=== PATIENT | male | born 1965 | race Caucasian/White ===

== ENCOUNTER 2017-12-08 13:41 | Outpatient (CLI) | payer BC ==
[~2017-12-08] VITALS: Ht 188 cm; Wt 108.9 kg
[2017-12-08] MEDS ORDERED: AMLO10TA6 PO (13:43)
== END 2017-12-08 13:44 | disposition home or self-care (01) ==
LOC: PREOP 13:41
PROVIDERS: ATTEND Internal Medicine
DX: Z01.818 Encounter for other preprocedural examination (principal)

== ENCOUNTER 2017-12-11 08:03 | Day surgery (SDC) | payer BC ==
--- NOTE | 2017-12-05 15:29 | HISTORY AND PHYSICAL ---
DATE OF SERVICE: HISTORY OF PRESENT ILLNESS: The patient is a 52-year-old white male referred by Dr. Restrepo for his first screening colonoscopy. He seemed to be of average risk as he is not aware of any family history for colon cancer. He denies any history of bright red blood per rectum, melena, bowel habit change, any significant problems with indigestion, dysphagia or odynophagia. His weight that he denies any issues with weight loss. PAST MEDICAL HISTORY: Significant for hypertension. PAST SURGICAL HISTORY: Noncontributory. Reporting no past surgeries. FAMILY HISTORY: Father at age of 66 secondary to pancreatitis, gallstone related. Mother at the age of 73 secondary to COPD result of longstanding tobaccoism. He is not aware of any family history for malignancy. SOCIAL HISTORY: He works at [employer]. Reporting no past smoking history with occasional social alcohol intake reported as a few beers on the weekends only. PHYSICAL EXAMINATION: GENERAL: Reveals a pleasant white male, appears to be in no acute distress. VITAL SIGNS: Weight is 242 pounds, blood pressure 124/96, heart rate 70 and regular. HEENT: Unremarkable. Sclerae nonicteric. NECK: Revealed no JVD, adenopathy or bruits. CHEST: Clear to auscultation. CARDIOVASCULAR: Reveals a regular rate and rhythm without murmur, S3 or S4. ABDOMEN: Soft, supple without mass, organomegaly or tenderness. No bruits are appreciated. Bowel sounds are positive. EXTREMITIES: Reveal no cyanosis, clubbing or edema. The patient is set up for screening colonoscopy on 12/11/2017. Prep instructions with Suprep kits were given and questions were answered. Rationale for screening colonoscopy was discussed with the patient as well. In evaluation answering his questions and evaluating his electronic medical record 45 minutes care time spent today. I thank you for the referral of this pleasant gentleman. Job ID: [id number] DocumentID: [id number] Dictated Date: 12/05/2017 15:12:02 [facility] Date: 12/05/2017 15:29:23 Dictated By: NORMA BLANK MD [facility]
[~2017-12-11] VITALS: Ht 188 cm; Wt 108.9 kg
[~2017-12-11 08:03] MED LIST: AMLO10TA6 PO
[2017-12-11] MEDS ORDERED: D5 LR IV SOLUTION 1,000 ML IV ONE (08:05)
--- OUTSIDE RECORDS SUMMARY | 2017-12-11 08:09 | XMS REPORT ---
Author Author CANTRELLERNESTO Olmedo Organization [facility] Address [address] [place] [address] Care Team Providers Care Treating Engineer Helper Name Role Phone ERNESTO CANTRELL Unavailable PROBLEMS Type Condition ICD9-CM Code ZIS80-QS Code Onset Dates Condition Status SNOMED Code Problem Obesity (BMI 30.0-34.9) E66.9 Active 662166176292547 Problem ETOH abuse F10.10 Active 06648868 Problem Non compliance with medical treatment Z91.19 Active 9328864 Problem Essential hypertension I10 Active 30289643 ALLERGIES No Known Allergies ENCOUNTERS Encounter Location Date Diagnosis [place] [address] [address] Mar, [place] [address] [address] Mar, Essential hypertension I10 [place] [address] [address] Feb, Essential hypertension I10 and Obesity (BMI 30.0-34.9) E66.9 [place] [address] [place] [id number] [place] [address] 2667 Jan, Essential hypertension I10 [place] [address] [address] Nov, Essential hypertension I10 ; ETOH abuse F10.10 and Non compliance with medical treatment Z91.19 [place] [address] [address] Sep, [place] [address] [address] Jul, Essential hypertension I10 [place] [address] [place] [address] Jun, Essential hypertension I10 [facility] [address] [id number] [id number] Apr, Encounter for dental examination Z01.20 [facility] [address] Mar, Encounter for health maintenance examination in adult Z00.00 and Essential hypertension I10 [facility] [address] [address] 8[address] Nov, [facility] [address] [place] [id number] [place] [address]- 68[address] Jul, [facility] [address] [place] [id number] [place] [address] 6[address]- 8768 Jul, [facility] [address] [place] [id number] [place] [address]- 2640 Jan, [facility] [address] [address] Jan, [facility] [address] [place] [address] 57[address]- 3[address] August, [facility] [address] [address] 7[address] Jul, [facility] [address] [address] 8[address] May, [facility] [address] [address] 117[address] Jan, [facility] [address] [address] 4[address] Dec, [facility] [address] [address] 267[address] Jul, [facility] [address] [address] 5[address] Jun, [facility] [address] [id number] [place] [address] 8[address] 14 May, 2011 [facility] [place] [facility] [address] [id number] [place] [address]- 3988 13 May, 2011 [facility] [place] [facility] [address] [id number] [place] [address]- 99[address] 10 May, 2011 [facility] [place] [facility] [address] [id number] [place] [address]- 2130 03 May, 2011 [facility] [place] [facility] [address] [id number] [place] [address] 28 Mar, 2011 [facility] [place] [facility] [address] [id number] [place] [address]- 2006 Feb, [facility] [place] [facility] [address] [facility] [id number] [place] [address] 50[address] Jan, [facility] [place] [facility] [address] [facility] [id number] [place] [address]- 7[address] August, [facility] [place] [facility] [address] [facility] [id number] [place] [address]- 2408 Jan, [facility] [place] [facility] [address] [facility] [id number] [place] [address]- 2579 Jan, [facility] [place] [facility] [address] [facility] [id number] [place] [address]- 6978 23 Mar, 2009 [facility] [place] [facility] [address] [id number] [place] [address] 76[address] Jan, [facility] [place] [facility] [address] [facility] [id number] [place] [address]- 1782 Oct, [facility] [place] [facility] [address] [facility] [id number] [place] [address]- 9444 Jul, [facility] [place] [facility] [address] [id number] [place] [address] 18 May, 2007 [facility] [place] [facility] [address] [facility] [id number] [place] [address] 2546 Feb, [facility] [address] [facility] [id number] [place] [address] 2546 Jan, [facility] [address] [facility] [id number] [place] [address]- 2546 Dec, [facility] [address] [facility] [id number] [place] [address]- 25[address] Nov, IMMUNIZATIONS No Known Immunizations SOCIAL HISTORY Never Assessed [facility]AS[facility] FOR VISIT [facility] Activity Details Follow Up 3 Months Reason:CHM/HTN VITAL SIGNS Height 74 in 2017-02-27 Weight 237 lbs 2017-02-27 Temperature 98.2 degrees Fahrenheit 2017-02-27 Heart Rate 90 bpm 2017-02-27 Respiratory Rate 18 2017-02-27 BMI 30.43 kg/m2 2017-02-27 Blood pressure systolic 122 mmHg 2017-02-27 Blood pressure diastolic 84 mmHg 2017-02-27 MEDICATIONS Medication Instructions Dosage Frequency Start Date End Date Duration Status Norvasc 10 mg Orally Once a day 1 tablet 24h 90 days Active RESULTS No Results PROCEDURES No Known procedures INSTRUCTIONS MEDICATIONS ADMINISTERED No Known Medications MEDICAL (GENERAL) HISTORY Type Description Date Medical History HTN
--- OUTSIDE RECORDS SUMMARY | 2017-12-11 08:09 | XMS REPORT ---
Author Author CANTRELLERNESTO Olmedo Organization [facility] Address [address] [place] [address] Care Team Providers Care Pedorthist Name Role Phone ERNESTO CANTRELL Unavailable PROBLEMS Type Condition ICD9-CM Code EFJ80-YR Code Onset Dates Condition Status SNOMED Code Problem Obesity (BMI 30.0-34.9) E66.9 Active 220474158993081 Problem ETOH abuse F10.10 Active 85462592 Problem Non compliance with medical treatment Z91.19 Active 8948018 Problem Essential hypertension I10 Active 93699637 ALLERGIES No Known Allergies ENCOUNTERS Encounter Location Date Diagnosis [place] [address] [address] Mar, [place] [address] [address] Mar, Essential hypertension I10 [place] [address] [address]- [address] Feb, Essential hypertension I10 and Obesity (BMI 30.0-34.9) E66.9 [place] [address] [place] [id number] [place] [address]- 67[address] Jan, Essential hypertension I10 [place] [address] [address]- [address] Nov, Essential hypertension I10 ; ETOH abuse F10.10 and Non compliance with medical treatment Z91.19 [place] [address] [address]- [address] Sep, [place] [address] [address]- [address] Jul, Essential hypertension I10 [place] [address] [place] [address]- 7321 Jun, Essential hypertension I10 [facility] [address] [id number] [id number] Apr, Encounter for dental examination Z01.20 [facility] [address] Mar, Encounter for health maintenance examination in adult Z00.00 and Essential hypertension I10 [facility] [address], [place] [address]- 114[address] Nov, [facility] [address] [place] [id number] [place] [address]- 1852 Jul, [facility] [address] [place] [id number] [place] [address] 82661- 8949 Jul, [facility] [address] [place] [id number] [place] [address] 12672- 4164 Jan, [facility] [address], [place] [address]- 1605 Jan, [facility] [address] [place] [address] 803627- 2210 August, [facility] [address], [place] [address]- 38[address] Jul, [facility] [address], [place] [address]- 0055 May, [facility] [address], [place] [address]- 7161 Jan, [facility] [address], [place] [address]- 2710 Dec, [facility] [address], [place] [address]- 6542 Jul, [facility] [address], [place] [address]- 9256 Jun, [facility] [address] [id number] [place] [address]- 6202 14 May, 2011 [facility] [place] [facility] [address] [id number] [place] [address]- 6844 13 May, 2011 [facility] [place] [facility] [address] [id number] [place] [address]- 0949 10 May, 2011 [facility] [place] [facility] [address] [id number] [place] [address]- 2972 03 May, 2011 [facility] [place] [facility] [address] [id number] [place] [address]- 8266 28 Mar, 2011 [facility] [place] [facility] [address] [id number] [place] [address]- 2580 Feb, [facility] [place] [facility] [address] [facility] [id number] [place] [address]- 8209 Jan, [facility] [place] [facility] [address] [facility] [id number] [place] [address]- 5032 August, [facility] [place] [facility] [address] [facility] [id number] [place] [address]- 8378 Jan, [facility] [place] [facility] [address] [facility] [id number] [place] [address]- 1871 Jan, [facility] [place] [facility] [address] [facility] [id number] [place] [address]- 2660 23 Mar, 2009 [facility] [place] [facility] [address] [id number], [place] [address]- 9825 Jan, [facility] [place] [facility] [address] [facility] [id number] [place] [address]- 3380 Oct, [facility] [place] [facility] [address] [facility] [id number] [place] [address]- 2261 Jul, [facility] [place] [facility] [address] [id number], [place] [address]- 6075 18 May, 2007 [facility] [place] [facility] [address] [facility] [id number], [place] [address]- 2546 Feb, [facility] [address] [facility] [id number] [place] [address]- 2546 Jan, [facility] [address] [facility] [id number][place] [address]- 2546 Dec, [facility] [address] [facility] [id number], [place] [address]- 2546 Nov, IMMUNIZATIONS No Known Immunizations SOCIAL HISTORY Never Assessed REASON FOR VISIT Blood Pressure-ELROY Badillo, C/o of DUGAN's. Been out of norvasc for over a month. PLAN OF CARE Activity Details Follow Up 3 Months Reason:CHM VITAL SIGNS Height 74 in 2016-11-04 Weight 252 lbs 2016-11-04 Temperature 99.3 degrees Fahrenheit 2016-11-04 Heart Rate 90 bpm 2016-11-04 Respiratory Rate 20 2016-11-04 BMI 32.35 kg/m2 2016-11-04 Blood pressure systolic 122 mmHg 2016-11-04 Blood pressure diastolic 94 mmHg 2016-11-04 MEDICATIONS Medication Instructions Dosage Frequency Start Date End Date Duration Status Norvasc 10 mg Orally Once a day 1 tablet 24h 90 days Active RESULTS No Results PROCEDURES No Known procedures INSTRUCTIONS MEDICATIONS ADMINISTERED No Known Medications MEDICAL (GENERAL) HISTORY Type Description Date Medical History HTN
--- OUTSIDE RECORDS SUMMARY | 2017-12-11 08:09 | XMS REPORT ---
Author Author ERNESTO CANTRELL Organization [facility] Address [address] [place] [address] Care Team Providers Care Photogrammetric Engineer Name Role Phone ERNESTO CANTRELL Unavailable PROBLEMS Type Condition ICD9-CM Code URM90-QL Code Onset Dates Condition Status SNOMED Code Problem ETOH abuse F10.10 Active 73960025 Problem Non compliance with medical treatment Z91.19 Active 8398137 Problem Essential hypertension I10 Active 82014835 ALLERGIES Substance Reaction Event Type Date Status N.K.D.A. Unknown Non Drug Allergy Mar, Unknown SOCIAL HISTORY No smoking Hx information available PLAN OF CARE Activity Details Follow Up 3 Months Reason:HTN VITAL SIGNS Height 74 in 2016-04-03 Weight 262 lbs 2016-04-03 Temperature 98.5 degrees Fahrenheit 2016-04-03 Heart Rate 90 bpm 2016-04-03 Respiratory Rate 60 2016-04-03 BMI 33.64 kg/m2 2016-04-03 Blood pressure systolic 152 mmHg 2016-04-03 Blood pressure diastolic 90 mmHg 2016-04-03 MEDICATIONS Medication Instructions Dosage Frequency Start Date End Date Duration Status Norvasc 10 mg Orally Once a day 1 tablet 24h 90 days Active RESULTS No Results PROCEDURES Procedure Date Ordered Related Diagnosis Body Site Office Visit, Est Pt., Level 3 Apr 03, 2016 IMMUNIZATIONS No Known Immunizations
--- OUTSIDE RECORDS SUMMARY | 2017-12-11 08:09 | XMS REPORT ---
Author Author CANTRELLERNESTO Olmedo Organization [facility] Address [address] [place] [address] Care Team Providers Care Student Union Consultant Name Role Phone ERNESTO CANTRELL Unavailable PROBLEMS Type Condition ICD9-CM Code DQI85-TZ Code Onset Dates Condition Status SNOMED Code Problem Obesity (BMI 30.0-34.9) E66.9 Active 828785028645681 Problem ETOH abuse F10.10 Active 24604431 Problem Non compliance with medical treatment Z91.19 Active 7857902 Problem Essential hypertension I10 Active 67726760 ALLERGIES No Information ENCOUNTERS Encounter Location Date Diagnosis [place] [address] [address]- [address] Mar, [place] [address] [address]- [address] Mar, Essential hypertension I10 [place] [address] [address]- 98[address] Feb, Essential hypertension I10 and Obesity (BMI 30.0-34.9) E66.9 [place] [address] [address]- 6179 Jan, Essential hypertension I10 [place] [address] [address]- [address] Nov, Essential hypertension I10 ; ETOH abuse F10.10 and Non compliance with medical treatment Z91.19 [place] [address] [address]- 270[address] Sep, [place] [address] [address]- [address]30 Jul, Essential hypertension I10 [place] [address] [place] [address]- 0043 Jun, Essential hypertension I10 [facility] [address] [id number] [id number] Apr, [facility]01.20 [facility] [address] Mar, Encounter for health maintenance examination in adult Z00.00 and Essential hypertension I10 [facility] [address] [facility] [id number], [place] [address]- 4[address] Nov, [facility] [address] [address] Jul, [facility] [address] [address] Jul, [facility] [address], [place] [address]- 0196 Jan, [facility] [address], [place] [address]- 3660 Jan, [facility] [address] [address] August, [facility] [address]- [address]87 Jul, [facility] [address], [place] [address]- 7368 May, [facility] [address], [place] [address]- 9120 Jan, [facility] [address], [place] [address]- 8790 Dec, [facility] [address], [place] [address]- 9765 Jul, [facility] [address], [place] [address]- 9766 Jun, [facility] [place] [facility] [address] [id number] [place] [address]- 8950 14 May, 2011 [facility] [place] [facility] [address] [id number] [place] [address]- 3777 13 May, 2011 [facility] [place] [facility] [address] [id number] [place] [address]- 1316 10 May, 2011 [facility] [place] [facility] [address] [id number] [place] [address]- 0270 03 May, 2011 [facility] [place] [facility] [address] [id number] [place] [address]- 2439 28 Mar, 2011 [facility] [place] [facility] [address] [id number] [place] [address]- 9675 Feb, [facility] [place] [facility] [address] [id number] [place] [address]- 7652 25 Jan, 2011 [facility] [place] [facility] [address] [id number] [place] [address]- 0058 August, [facility] [place] [facility] [address] [id number] [place] [address]- 0561 13 Jan, 2010 [facility] [place] [facility] [address] [facility] [id number] [place] [address]- 9585 13 Jan, 2010 [facility] [place] [facility] [address] [facility] [id number] [place] [address]- 7961 23 Mar, 2009 [facility] [place] [facility] [address] [id number] [place] [address]- 2643 Jan, [facility] [place] [facility] [address] [id number] [place] [address]- 5039 Oct, [facility] [place] [facility] [address] [id number] [place] [address]- 8067 Jul, [facility] [place] [facility] [address] [id number] [place] [address]- 8618 18 May, 2007 [facility] [place] [facility] [address] [id number], [place] [address]- 0[address] Feb, [facility] [address] [facility] [id number] [place] [address]- 2546 Jan, [facility] [address] [facility] [id number], [place] [address]- 2546 Dec, [facility] [address] [facility] [id number] [place] [address]- 2546 Nov, IMMUNIZATIONS No Known Immunizations SOCIAL HISTORY Never Assessed REASON FOR VISIT Lab (walk-in)--[facility] PLAN OF CARE VITAL SIGNS MEDICATIONS Unknown Medications RESULTS No Results PROCEDURES Procedure Date Ordered Result Body Site LIPID PANEL Mar 06, 2017 COMPREHEN METABOLIC PANEL Mar 06, 2017 ASSAY THYROID STIM HORMONE Mar 06, 2017 COMPLETE CBC W/AUTO DIFF WBC Mar 06, 2017 VENIPUNCT, ROUTINE* Mar 06, 2017 INSTRUCTIONS MEDICATIONS ADMINISTERED No Known Medications MEDICAL (GENERAL) HISTORY Type Description Date Medical History HTN
--- OUTSIDE RECORDS SUMMARY | 2017-12-11 08:09 | XMS REPORT ---
Author Author CANTRELLERNESTO Olmedo Organization [facility] Address [address] [place] [address] Care Team Providers Care Egg Grader Name Role Phone ERNESTO CANTRELL Unavailable PROBLEMS Type Condition ICD9-CM Code SGO56-RE Code Onset Dates Condition Status SNOMED Code Problem Obesity (BMI 30.0-34.9) E66.9 Active 708725717065377 Problem ETOH abuse F10.10 Active 71152950 Problem Non compliance with medical treatment Z91.19 Active 9049552 Problem Essential hypertension I10 Active 75721958 ALLERGIES No Information ENCOUNTERS Encounter Location Date Diagnosis [place] [address] [address] Mar, [place] [address] [address] Mar, Essential hypertension I10 [place] [address] [address] Feb, Essential hypertension I10 and Obesity (BMI 30.0-34.9) E66.9 [place] [address] [address] Jan, Essential hypertension I10 [place] [address] [address] Nov, Essential hypertension I10 ; ETOH abuse F10.10 and Non compliance with medical treatment Z91.19 [place] [address] [address] Sep, [place] [address] [address] Jul, Essential hypertension I10 [place] [address] [place] [address] Jun, Essential hypertension I10 [facility] [place] [facility] [address] [id number] [id number] Apr, [facility] for [facility] examination Z01.20 [facility] [address] [address] Mar, Encounter for health maintenance examination in adult Z00.00 and Essential hypertension I10 [facility] [address] [facility] [id number] [address] Nov, [facility] [address] [place] [address] Jul, [facility] [address] [address] Jul, [facility] [address] [address] Jan, [facility] [address] [address] Jan, [facility] [address] [address] August, [facility] [address] [address] Jul, [facility] [address] [address] May, [facility] [address] [address] Jan, [facility] [address] [address] Dec, [facility] [address] [address] Jul, [facility] [address] [address] Jun, [facility] [place] [facility] [address] [id number] [place] [address] 14 May, 2011 [facility] [place] [facility] [address] [id number] [place] [address] 13 May, 2011 [facility] [place] [facility] [address] [id number] [place] [address] 10 May, 2011 [facility] [place] [facility] [address] [id number] [place] [address] 03 May, 2011 [facility] [place] [facility] [address] [id number] [place] [address] 28 Mar, 2011 [facility] [place] [facility] [address] [id number] [place] [address] Feb, [facility] [place] [facility] [address] [id number] [place] [address] 25 Jan, 2011 [facility] [place] [facility] [address] [id number] [place] [address] August, [facility] [place] [facility] [address] [id number] [place] [address] 13 Jan, 2010 [facility] [place] [facility] [address] [facility] [id number] [place] [address] 13 Jan, 2010 [facility] [place] [facility] [address] [facility] [id number] [place] [address] 23 Mar, 2009 [facility] [place] [facility] [address] [id number] [place] [address] Jan, [facility] [place] [facility] [address] [id number] [place] [address] Oct, [facility] [place] [facility] [address] [id number] [place] [address] Jul, [facility] [place] [facility] [address] [id number] [place] [address] 18 May, 2007 [facility] [place] [facility] [address] [id number] [place] [address] Feb, [facility] [address] [facility] [id number] [place] [address] Jan, [facility] [address] [facility] [id number] [place] [address] Dec, [facility] [address] [facility] [id number] [place] [address] Nov, IMMUNIZATIONS No Known Immunizations SOCIAL HISTORY Never Assessed REASON FOR VISIT Requests return call PLAN OF CARE VITAL SIGNS MEDICATIONS Unknown Medications RESULTS No Results PROCEDURES No Known procedures INSTRUCTIONS MEDICATIONS ADMINISTERED No Known Medications MEDICAL (GENERAL) HISTORY Type Description Date Medical History HTN
--- OUTSIDE RECORDS SUMMARY | 2017-12-11 08:09 | XMS REPORT ---
Author MAYELA Vázquez Organization [employer] Address Unknown Phone Unavailable Care Team Providers Care Yard Spotter Name Role Phone MAYELA SWIFT CP Unavailable Allergies No Known Allergies Problems Problem Type Condition Code Onset Dates Condition Status Problem Acute upper respiratory infections of unspecified site 465.9 Active Medications No Known Medications Results No Known Results Summary Purpose [employer] Submission
--- OUTSIDE RECORDS SUMMARY | 2017-12-11 08:09 | XMS REPORT ---
Author Author SUPRIYA BERRIOS Organization [facility] Address [address] [place] [address] Care Team Providers Care Aco Coordinator Name Role Phone AGUSTINAZAKIYAA Unavailable PROBLEMS Type Condition ICD9-CM Code PZY90-WL Code Onset Dates Condition Status SNOMED Code Problem ETOH abuse F10.10 Active 31689386 Problem Non compliance with medical treatment Z91.19 Active 1633428 Problem Essential hypertension I10 Active 27901193 ALLERGIES Substance Reaction Event Type Date Status N.K.D.A. Unknown Non Drug Allergy Apr, Unknown SOCIAL HISTORY No smoking Hx information available PLAN OF CARE Activity Details Follow Up 6 Months Reason:Recall VITAL SIGNS Heart Rate 99 bpm 2016-04-29 Blood pressure systolic 133 mmHg 2016-04-29 Blood pressure diastolic 91 mmHg 2016-04-29 MEDICATIONS Medication Instructions Dosage Frequency Start Date End Date Duration Status Norvasc 10 mg Orally Once a day 1 tablet 24h 90 days Active RESULTS No Results PROCEDURES Procedure Date Ordered Related Diagnosis Body Site PERIODIC ORAL EXAMINATION Apr 29, 2016 INTRAORL-PERIAPICAL 1 FILM 48467 Apr 29, 2016 INTRAORL-PERIAPICAL EA ADD FILM Apr 29, 2016 INTRAORL-PERIAPICAL EA ADD FILM Apr 29, 2016 Periodontal maint procedures Apr 29, 2016 BITEWINGS - FOUR FILMS Apr 29, 2016 IMMUNIZATIONS No Known Immunizations
--- OUTSIDE RECORDS SUMMARY | 2017-12-11 08:09 | XMS REPORT ---
Author Author ERNESTO CANTRELL Organization [facility] Address [address] [place] [address] Care Team Providers Care Lock Fitter Name Role Phone ERNESTO CANTRELL Unavailable PROBLEMS Type Condition ICD9-CM Code PQL04-YJ Code Onset Dates Condition Status SNOMED Code Problem ETOH abuse F10.10 Active 49512184 Problem Non compliance with medical treatment Z91.19 Active 6652511 Problem Essential hypertension I10 Active 00745411 ALLERGIES No Information SOCIAL HISTORY Never Assessed PLAN OF CARE VITAL SIGNS MEDICATIONS Medication Instructions Dosage Frequency Start Date End Date Duration Status Norvasc 10 mg Orally Once a day 1 tablet 24h Active RESULTS No Results PROCEDURES No Known procedures IMMUNIZATIONS No Known Immunizations MEDICAL (GENERAL) HISTORY Type Description Date Medical History HTN
[2017-12-11 08:10] VITALS: BP 124/94
--- OUTSIDE RECORDS SUMMARY | 2017-12-11 08:10 | XMS REPORT | Continuity of Care Document ---
Author Author [facility] Address Unknown Phone Unavailable Allergies There is no data. Medications There is no data. Problems Date Dx Coded Attending Type Code Diagnosis Diagnosed By 10/22/2007 MAYELA SWIFT DO 401.1 HYPERTENSION, BENIGN ESSENTIAL 10/22/2007 MAYELA SWIFT DO 530.81 Gerd 12/02/2007 MAYELA SWIFT DO 462 Pharyngitis Acute 01/06/2008 MAYELA SWIFT DO 461.9 SINUSITIS ACUTE 06/26/2008 MAYELA SWIFT DO 465.9 Upper Respiratory Infection 07/07/2008 MAYELA SWIFT DO 381.81 Dysfunction Of Eustachian Tube 04/26/2009 MAYELA SWIFT DO 724.3 Sciatica 07/01/2010 MAYELA SWIFT DO 706.2 Sebaceous Cyst 07/01/2010 GINA SWIFT DOA K 788.62 Slowing Of Urinary Stream 07/04/2010 GINA SWIFT DOA K 600.00 HYPERTROPHY (BENIGN) OF PROSTATE WITHOUT URINARY OBSTRUCTION AND OTHER LOWER URINARY TRACT SYMPTOMS (LUTS) 08/14/2010 MAYELA SWIFT DO 355.0 Lesion Of Sciatic Nerve 05/14/2012 MAYELA SWIFT DO 465.9 UPPER RESPIRATORY INFECTION Procedures There is no data. Results Test Result Range THYROID ANALYZER - 03/06/17 08:20 TSH 1.67 mIU/L 0.40-4.50 Encounters ACCT No. Visit Date/Time Discharge Status Pt. Type Provider Facility Loc./Unit Complaint [id number] 05/14/2012 10:22:00 05/14/2012 23:59:59 [place] [id number] 03/06/2017 08:00:00 03/06/2017 23:59:59 [facility] [id number] 03/06/2017 08:00:00 Document Registration
--- OUTSIDE RECORDS SUMMARY | 2017-12-11 08:10 | XMS REPORT ---
Author Author CANTRELLERNESTO Olmedo Organization [facility] Address [address] [place] [address] Care Team Providers Care Ict Programmer Name Role Phone ERNESTO CANTRELL Unavailable PROBLEMS Type Condition ICD9-CM Code VBI99-VU Code Onset Dates Condition Status SNOMED Code Problem Obesity (BMI 30.0-34.9) E66.9 Active 361761917183647 Problem ETOH abuse F10.10 Active 22097728 Problem Non compliance with medical treatment Z91.19 Active 0495305 Problem Essential hypertension I10 Active 55800169 ALLERGIES No Information ENCOUNTERS Encounter Location Date Diagnosis [place] [address] [address] Mar, [place] [address] [address] Mar, Essential hypertension I10 [place] [address] [address] Feb, Essential hypertension I10 and Obesity (BMI 30.0-34.9) E66.9 [place] [address] [address] Jan, Essential hypertension I10 [place] [address] [address] Nov, Essential hypertension I10 ; ETOH abuse F10.10 and Non compliance with medical treatment Z91.19 [place] [address] [address] Sep, [place] [address] [address] Jul, Essential hypertension I10 [place] [address] [place] [address] Jun, Essential hypertension I10 [facility] [place] [facility] [address] [id number] [place] [address] Apr, [facility]counter for [facility] examination Z01.20 [facility] [address] [address] Mar, Encounter for health maintenance examination in adult Z00.00 and Essential hypertension I10 [facility] [address] [facility] [id number] [address] Nov, [facility] [address] Jul, [facility] [address] [address] Jul, [facility] [address] [address] Jan, [facility] [address] [address] Jan, [facility] [address] August, [facility] [address] [address] Jul, [facility] [address] [address] May, [facility] [address] [address] Jan, [facility] [address] [address] Dec, [facility] [address] [address] Jul, [facility] [address] [address] Jun, [facility] [place] [facility] [address] [id number] [place] [address]- [address] 14 May, 2011 [facility] [place] [facility] [address] [id number] [place] [address]- [address] 13 May, 2011 [facility] [place] [facility] [address] [id number] [place] [address]- [address] 10 May, 2011 [facility] [place] [facility] [address] [id number] [place] [address]- [address] 03 May, 2011 [facility] [place] [facility] [address] [id number] [place] [address]- 65[address] 28 Mar, 2011 [facility] [place] [facility] [address] [id number] [place] [address]- [address] Feb, [facility] [place] [facility] [address] [id number] [place] [address]- [address] 25 Jan, 2011 [facility] [place] [facility] [address] [id number] [place] [address]- [address] August, [facility] [place] [facility] [address] [id number] [place] [address] 13 Jan, 2010 [facility] [place] [facility] [address] [facility] [id number] [place] [address]- [address] 13 Jan, 2010 [facility] [place] [facility] [address] [facility] [id number] [place] [address]- [address] 23 Mar, 2009 [facility] [place] [facility] [address] [id number] [place] [address]- 2018 Jan, [facility] [place] [facility] [address] [id number] [place] [address]- [address] Oct, [facility] [place] [facility] [address] [id number] [place] [address] Jul, [facility] [place] [facility] [address] [id number] [place] [address]- [address] 18 May, 2007 [facility] [place] [facility] [address] [id number] [place] [address] Feb, [facility] [address] [facility] [id number] [place] [address] Jan, [facility] [address] [facility] [id number] [address] Dec, [facility] [address] [facility] [id number] [place] [address] Nov, IMMUNIZATIONS No Known Immunizations SOCIAL HISTORY Never Assessed REASON FOR VISIT Refill request PLAN OF CARE VITAL SIGNS MEDICATIONS Unknown Medications RESULTS No Results PROCEDURES No Known procedures INSTRUCTIONS MEDICATIONS ADMINISTERED No Known Medications MEDICAL (GENERAL) HISTORY Type Description Date Medical History HTN
[2017-12-11] MEDS ORDERED: LIDOCAINE JELLY 2% (XYLOCAINE) 5 ML TUBE MM PRN (08:30)
[2017-12-11] MEDS ORDERED: MIDAZOLAM 2 MG/2 ML (VERSED) VIAL IVP ONE (08:30)
[2017-12-11] MEDS ORDERED: fentaNYL INJECTION 100 MCG/2 ML AMP IVP ONE (08:30)
[2017-12-11] MEDS ORDERED: D5 LR IV SOLUTION 1,000 ML IV PRN (08:30)
--- NOTE | 2017-12-11 08:45 | Pre-Op Note & Conscious Sedat ---
Pre-Operative Progress Note H&P Reviewed The H&P was reviewed, patient examined and no changes noted. Date H&P Reviewed: Dec 11, 2017 Time H&P Reviewed: 08:45 Conscious Sedation Pre-Proced ASA Class: 2 Airway Mallampati Classification: (bois forte appropriate class) I. II. III, IV Lungs Heart ASA score ASA 1: a normal healthy patient ASA 2: a patient with a mild systemic disease (mid diabetes, controlled hypertension, obesity ASA 3: a patient with a severe systemic disease that limits activity (angina , COPD, prior Myocardial infarction) ASA 4: a patient with an incapacitating disease that is a constant threat to life (CHF, renal failure) ASA 5: a moribund patient not expected to survive 24 hrs. (ruptured aneurysm) ASA 6: a declared brain patient whose organs are being harvested. For emergent operations, add the letter E after the classification Grade 3 Sedation Plan: Analgesia, Amnesia, Plan communicated to team members, Discussed options with patient/fam, Discussed risks with patient/fam Note The patient is an appropriate candidate to undergo the planned procedure, sedation, and anesthesia. The patient immediately re-assessed prior to indication. NORMA BLANK MD Dec 11, 2017 08:45
[2017-12-11] MEDS ORDERED: MIDAZOLAM 2 MG/2 ML (VERSED) VIAL ONE ×2 (09:08)
[2017-12-11] MEDS ORDERED: fentaNYL INJECTION 100 MCG/2 ML AMP ONE (09:08)
[2017-12-11] MEDS ORDERED: LIDOCAINE JELLY 2% (XYLOCAINE) 5 ML TUBE ONE (09:09)
[2017-12-11 10:05] VITALS: BP 123/88
[2017-12-11 10:35] VITALS: BP 118/78
[2017-12-11 11:10] VITALS: BP 118/78
--- NOTE | 2017-12-11 15:35 | OPERATIVE REPORT ---
DATE OF SERVICE: 12/11/2017 COLONOSCOPY SUMMARY INDICATION FOR THE PROCEDURE: Screening colonoscopy. The patient was placed in the left lateral decubitus position. Prior to undergoing colonoscopy, digital rectal evaluation was performed. Anal sphincter tone was normal. The perianal reflexes were intact. Prostate is normal in size, anodular, nontender to digital inspection. No abnormalities, no additional inspection of the anal canal or distal rectal vault. Colonoscope was then inserted into the rectum under direct visualization and advanced to the cecum. The cecum was identified by identification of the ileocecal valve and cecal strap. Photographic documentation was obtained. Careful inspection was made as colonoscope was withdrawn. The colonic prep was good. FINDINGS: There is no evidence for internal or external hemorrhoids. The rectum was unremarkable. Several small and one large sigmoid diverticulum were present without evidence for diverticulitis. The descending colon, splenic flexure, transverse colon, hepatic flexure, ascending colon, and cecum were unremarkable. ASSESSMENT: Jvbh-tb-pbucpaof diverticular disease confined to the sigmoid colon was present without evidence for diverticulitis. This was otherwise normal colonoscopy to the cecum including normal digital prostate examination. As the patient is not aware of any family history for colon polyps, I would advocate consideration for repeat screening colonoscopy in 10 years. I thank you for the referral of this pleasant gentleman. Job ID: [id number] DocumentID: [id number] Dictated Date: 12/11/2017 10:16:59 Medical Cost Consultant Date: 12/11/2017 11:23:24 Dictated By: NORMA BLANK MD MTDD
== END 2017-12-11 11:10 | disposition home or self-care (01) ==
LOC: ENDO 08:03
PROVIDERS: ATTEND Internal Medicine
DX: Z12.11 Encounter for screening for malignant neoplasm of colon (principal); K57.30 Diverticulosis of large intestine without perforation or abscess without bleeding; I10 Essential (primary) hypertension

== ENCOUNTER → 2018-08-12 | Outpatient (CLI) | payer BC ==
[~2018-08-12] MED LIST changes: -AMLO10TA6 PO; +AMLO10TA7 PO
--- NOTE | 2018-08-12 13:12 | Diagnostic Imaging Report ---
PROCEDURE: MRI left joint lower extremity without contrast. TECHNIQUE: Multiplanar, multisequence nsg-ljtykxgk-qyhbmzly MRI of the left ankle was accomplished. INDICATION: Left ankle pain and swelling. Pain greatest posteriorly near Achilles. COMPARISONS: None available. FINDINGS: TENDONS: Mild tendinopathy of the Achilles with the distal insertion remaining intact. Retrocalcaneal bursitis is present. A small amount of retro-Achilles edema is present without loculated fluid to indicate bursitis. The peroneus longus and brevis are normal. The posterior tibialis, flexor digitorum longus, and flexor hallucis longus are normal. The anterior tibialis, extensor hallucis longus, extensor digitorum longus, and peroneus tertius are all intact. LIGAMENTS: Anterior and posterior distal tibiofibular ligaments are intact. Anterior talofibular, calcaneofibular, and posterior talofibular ligaments are normal. Medial deltoid ligamentous complex is intact. BONES AND CARTILAGE: No osteochondral lesion of the talar dome. No fracture or stress fracture. The articular cartilage of the tibiotalar and posterior subtalar joints are normal. Os trigonum is present without surrounding edema. SOFT TISSUES: No evidence of plantar fasciitis. No abnormal soft tissue scar/fibrosis within the tarsal canal/sinus tarsi or tarsal tunnel. No ankle joint effusion. IMPRESSION: 1. Achilles tendinopathy with associated retrocalcaneal bursitis. This likely accounts for patient's posterior ankle pain. 2. No ligamentous injury. Dictated by: Dictated on workstation # [id number]
== END ==
LOC: RAD 09:22
PROVIDERS: ATTEND Podiatrist Foot & Ankle Surgery
DX: M76.62 Achilles tendinitis, left leg (principal)
CPT/HCPCS: 73721

== ENCOUNTER → 2018-08-26 | Outpatient (CLI) | payer BC ==
[2018-08-26 10:25] LABS: HEMOGLOBIN 16.7 G/DL (13.3-17.7); MEAN PLATELET VOLUME 9.9 FL (7.4-10.4); RED CELL DISTRIBUTION WIDTH 12.3 % (10.0-14.5); WHITE BLOOD COUNT 7.8 10^3/uL (4.3-11.0)
[2018-08-26 10:44] LABS: ALANINE AMINOTRANSFERASE 48 U/L (0-55); ALBUMIN 4.7 GM/DL (3.2-4.5); ALKALINE PHOSPHATASE 53 U/L (40-136); BILIRUBIN,TOTAL 0.9 MG/DL (0.1-1.0); BUN/CREATININE RATIO 15; CALCIUM 9.6 MG/DL (8.5-10.1); CARBON DIOXIDE 19 MMOL/L (21-32); CHLORIDE 109 MMOL/L (98-107); CHOLESTEROL 179 MG/DL (< 200); CREATININE SERUM 0.91 MG/DL (0.60-1.30); GFR ESTIMATED > 60; GLUCOSE 89 MG/DL (70-105); HDL CHOLESTEROL 40 MG/DL (40-60); POTASSIUM 3.9 MMOL/L (3.6-5.0); SODIUM 140 MMOL/L (135-145); TOTAL PROTEIN 7.9 GM/DL (6.4-8.2); TRIGLYCERIDES 125 MG/DL (<150); VLDL CHOLESTEROL 25 MG/DL (5-40)
--- NOTE | 2018-08-26 10:51 | Diagnostic Imaging Report ---
INDICATION: Hypertension with widened pulse pressures. Cardiomediastinal contour is normal. There is no failure, effusion or pneumothorax. The lungs clear. No free air beneath the diaphragms. IMPRESSION: Normal two-view chest Dictated by: Dictated on workstation # [id number]
== END ==
LOC: CARD 10:08
PROVIDERS: ATTEND Physician Assistant
DX: R00.0 Tachycardia, unspecified (principal); I10 Essential (primary) hypertension; Z82.49 Family history of ischemic heart disease and other diseases of the circulatory system
CPT/HCPCS: 36415; 71046; 80053; 80061; 84443; 85027; 93005

== ENCOUNTER → 2018-09-10 | Outpatient (CLI) | payer BC | LOC: CARD 11:02 | PROVIDERS: ATTEND Physician Assistant | DX: I10 Essential (primary) hypertension (principal); R00.0 Tachycardia, unspecified; Z82.49 Family history of ischemic heart disease and other diseases of the circulatory system | CPT/HCPCS: 93306 ==

== ENCOUNTER → 2019-02-03 | Outpatient (CLI) | payer BC ==
[~2019-02-03] MED LIST changes: +CATHETER FLUSH 10 ML SYR IV PRN; +CIPR5DRO OP; +HOLD METFORMIN - RECEIVED CONTRAST 20 ML VIAL IV SCH; +HYDR-3062 PO; +HYDR15SO8 PO; +IOHEXOL 350 MG/ML 100 ML (OMNIPAQUE 350) VIAL IV ONE; +NS 100 ML (IVPB) BAG IV ONE
[2019-02-03 09:48] LABS: BUN/CREATININE RATIO 24; CREATININE SERUM 0.82 MG/DL (0.60-1.30); GFR ESTIMATED > 60
--- NOTE | 2019-02-03 10:56 | Diagnostic Imaging Report ---
PROCEDURE: CT head with and without contrast. TECHNIQUE: Multiple contiguous axial images were obtained through the brain before and after the administration of intravenous contrast. Auto Exposure Controls were utilized during the CT exam to meet ALARA standards for radiation dose reduction. INDICATION: Headache. Right ear pain. Imbalance issues COMPARISON: None. FINDINGS: The ventricles and cortical sulci are age-appropriate. There is no midline shift or mass-effect. No acute intra-axial hemorrhage is seen. There are no abnormal areas of increased or decreased density to suggest acute hemorrhage or edema. No extra-axial masses or collections are present. The bony calvarium is intact. The visualized paranasal sinuses are unremarkable. The mastoid air cells are partially opacified on the right. IMPRESSION: 1. No acute intracranial abnormality. No CT evidence of mass, acute infarct or intracranial hemorrhage. 2. Partial opacification of the right mastoid air cells. In the correct clinical setting, this can be seen as a sequela of mastoiditis. Clinical correlation is recommended. Dictated by: Dictated on workstation # [id number]
== END ==
LOC: RAD 09:13
PROVIDERS: ATTEND Otolaryngology Otolaryngology/Facial Plastic Surgery
DX: H69.81 Other specified disorders of Eustachian tube, right ear (principal); R51 Headache; H92.01 Otalgia, right ear
CPT/HCPCS: 36415; 70470; 82565; 84520

== ENCOUNTER 2019-02-24 05:34 | Outpatient (CLI) | payer BC ==
[~2019-02-24] VITALS: Ht 187 cm; Wt 106.0 kg
[~2019-02-24 05:34] MED LIST changes: -CATHETER FLUSH 10 ML SYR IV PRN; -CIPR5DRO OP; -HOLD METFORMIN - RECEIVED CONTRAST 20 ML VIAL IV SCH; -HYDR-3062 PO; -HYDR15SO8 PO; -IOHEXOL 350 MG/ML 100 ML (OMNIPAQUE 350) VIAL IV ONE; -NS 100 ML (IVPB) BAG IV ONE
== END 2019-02-24 10:08 | disposition home or self-care (01) ==
LOC: PREOP 05:34
PROVIDERS: ATTEND Otolaryngology Otolaryngology/Facial Plastic Surgery
DX: Z01.818 Encounter for other preprocedural examination (principal)